=== PATIENT | female | born 1990 | race Caucasian/White ===

== ENCOUNTER 2019-03-25 09:42 | Inpatient (IN) | payer MEDICAID ==
[2019-03-25 10:33] LABS: RUPTURE FETAL MEMBRANES POSITIVE (NEGATIVE)
[2019-03-25] MEDS ORDERED: METHYLERGONOVINE 0.2 MG INJ IM (12:00)
[2019-03-25] MEDS ORDERED: LIDOCAINE 1% (MPF) 30 ML INJ INJ (12:00)
[2019-03-25] MEDS ORDERED: MISOPROSTOL 200 MCG TAB PR (12:00)
[2019-03-25] MEDS ORDERED: OXYTOCIN 30 UNITS/LR 500 ML IV ×2 (12:00)
[2019-03-25] MEDS ORDERED: IBUPROFEN 600 MG TAB PO (12:00)
[2019-03-25] MEDS ORDERED: BUTORPHANOL 2 MG INJ IV ×2 (12:00)
[2019-03-25] MEDS ORDERED: CARBOPROST 250 MCG INJ IM (12:00)
[2019-03-25] MEDS: LACTATED RINGER'S 1,000 ML IV ×3 (12:34→21:45)
[2019-03-25 12:45] LABS: ADD MAN DIFF? NO
[2019-03-25] MEDS: AMPICILLIN 2 GM/NS (PMX) 100 ML IV (12:49)
[2019-03-25 12:50] LABS: WHITE BLOOD COUNT 7.7 10^3/ul (4.8-10.8)
[2019-03-25 12:50] LABS: BASOPHILS % 0.1 % (0.0-2.0); EOSINOPHILS # 0.1 10^3/ul (0.0-0.5); EOSINOPHILS % 0.6 % (0.0-7.0); HEMATOCRIT 34.3 % (37.0-47.0); LYMPHOCYTES # 1.5 10^3/ul (0.8-2.9); LYMPHOCYTES % 19.8 % (15.0-51.0); MEAN CORPUSCULAR HEMOGLOBIN 25.8 pg (29.0-33.0); MEAN CORPUSCULAR HGB CONC 32.1 g/dl (32.0-37.0); MEAN CORPUSCULAR VOLUME 80.5 fl (82.0-101.0); MEAN PLATELET VOLUME 12.1 fl (7.4-10.4); MONOCYTE # 0.6 10^3/ul (0.3-0.9); MONOCYTES % 7.1 % (0.0-11.0); NEUTROPHIL # 5.6 10^3/ul (1.6-7.5); PLATELET COUNT 224 10^3/UL (140-415); RED BLOOD COUNT 4.26 10^6/ul (4.20-5.40); RED CELL DISTRIBUTION WIDTH 13.2 % (11.5-14.5)
[2019-03-25 13:04] LABS: GLUCOSE 130 mg/dl (70-220)
[2019-03-25 13:09] LABS: INR 0.88; PT RATIO 0.9
[2019-03-25 13:10] LABS: PARTIAL THROMBOPLASTIN TIME 26.2 Sec (23.0-35.0)
[2019-03-25] MEDS: BETAMET NA PHOS/AC(6 MG/ML) 2 ML INJ SYG IM (13:47)
[2019-03-25 14:39] LABS: HEPATITIS B SURFACE ANTIGEN NEGATIVE (NEGATIVE)
[2019-03-25] MEDS: OXYTOCIN 30 UNITS/LR 500 ML IV (14:57)
[2019-03-25] MEDS: AMPICILLIN 1 GM/NS (PMX) 50 ML IV ×2 (17:18→20:54)
[2019-03-25] MEDS: INSULIN REGULAR, HUMAN 100 UNIT/1 ML 3ML VIAL SC (17:59)
[2019-03-25] MEDS ORDERED: GLUCAGON 1 MG INJ IM (18:00)
[2019-03-25] MEDS ORDERED: GLUCOSE GEL 15 GRAM TUBE PO ×2 (18:00)
[2019-03-25] MEDS ORDERED: GLUCOSE GEL 15 GRAM TUBE BUCCAL (18:00)
[2019-03-25] MEDS ORDERED: DEXTROSE 50% 50 ML SYRINGE IV ×2 (18:00)
[2019-03-25] MEDS ORDERED: FENTAnyl 2MCG/ML-ROPIV 0.2% 100 ML (21:36)
[2019-03-25] MEDS ORDERED: DIPHENHYDRAMINE 50 MG INJ IV (22:00)
[2019-03-25] MEDS ORDERED: NALOXONE (0.4 MG/ML) INJ IV (22:00)
[2019-03-25] MEDS: INSULIN ASPART [NOVOLOG] 3 ML PEN SC (22:27)
[2019-03-25 22:53] LABS: RAPID PLASMA REAGIN NONREACTIVE (NR)
[2019-03-26] MEDS: AMPICILLIN 1 GM/NS (PMX) 50 ML IV ×5 (00:13→16:35)
[2019-03-26] MEDS: INSULIN ASPART [NOVOLOG] 3 ML PEN SC ×3 (01:18→09:00)
[2019-03-26] MEDS: LACTATED RINGER'S 1,000 ML IV ×2 (05:49→15:02)
[2019-03-26] MEDS: FENTAnyl 2MCG/ML-ROPIV 0.2% 100 ML BAG EPI ×2 (05:51→14:04)
[2019-03-26] MEDS: ONDANSETRON 4 MG INJ IV (07:32)
[2019-03-26] MEDS: OXYTOCIN 30 UNITS/LR 500 ML IV ×2 (16:56→21:06)
[2019-03-26] MEDS ORDERED: MISOPROSTOL 200 MCG TAB PR (19:30)
[2019-03-26] MEDS ORDERED: METHYLERGONOVINE 0.2 MG INJ IM (19:30)
[2019-03-26] MEDS ORDERED: BENZOCAINE 20% 56 ML SPRAY TOP (19:30)
[2019-03-26] MEDS ORDERED: CARBOPROST 250 MCG INJ IM (19:30)
[2019-03-26] MEDS ORDERED: WITCH HAZEL/GLYCERIN PAD PR (19:30)
[2019-03-26] MEDS ORDERED: OXYCODONE/ASPIRIN (4.88/325) TAB PO ×2 (19:30)
[2019-03-26] MEDS ORDERED: ZOLPIDEM 5 MG TAB PO (19:30)
[2019-03-26] MEDS: SENNA/DOCUSATE NA (8.6MG/50MG) TAB PO (21:02)
[2019-03-27] MEDS: IBUPROFEN 600 MG TAB PO ×4 (00:33→19:08)
[2019-03-27] MEDS: LANOLIN HPA 1 PKT TOP (00:33)
[2019-03-27] MEDS: SENNA/DOCUSATE NA (8.6MG/50MG) TAB PO ×2 (08:29→21:54)
[2019-03-27 08:50] LABS: ADD MAN DIFF? NO
[2019-03-27 08:56] LABS: BASOPHILS % 0.2 % (0.0-2.0); EOSINOPHILS % 0.2 % (0.0-7.0); HEMATOCRIT 30.8 % (37.0-47.0); HEMOGLOBIN 9.9 g/dl (12.0-16.0); LYMPHOCYTES % 15.3 % (15.0-51.0); MEAN CORPUSCULAR HEMOGLOBIN 25.8 pg (29.0-33.0); MEAN CORPUSCULAR HGB CONC 32.1 g/dl (32.0-37.0); MEAN CORPUSCULAR VOLUME 80.4 fl (82.0-101.0); MEAN PLATELET VOLUME 12.3 fl (7.4-10.4); MONOCYTE # 0.9 10^3/ul (0.3-0.9); MONOCYTES % 6.7 % (0.0-11.0); NEUTROPHIL # 9.9 10^3/ul (1.6-7.5); NEUTROPHILS % 76.9 % (39.0-77.0); PLATELET COUNT 206 10^3/UL (140-415); RED BLOOD COUNT 3.83 10^6/ul (4.20-5.40); RED CELL DISTRIBUTION WIDTH 13.3 % (11.5-14.5)
[2019-03-27 08:56] LABS: WHITE BLOOD COUNT 12.9 10^3/ul (4.8-10.8)
[2019-03-27 09:39] LABS: ALANINE AMINOTRANSFERASE 22 IU/L (13-69); ALBUMIN 2.6 g/dl (3.3-4.9); ALKALINE PHOSPHATASE 79 IU/L (42-121); ANION GAP 6 (5-13); ASPARTATE AMINO TRANSFERASE 26 IU/L (15-46); BILIRUBIN,INDIRECT 0.3 mg/dl (0-1.1); BILIRUBIN,TOTAL 0.3 mg/dl (0.2-1.3); BLOOD UREA NITROGEN 6 mg/dl (7-20); CALCIUM 8.8 mg/dl (8.4-10.2); CARBON DIOXIDE 22 mmol/L (21-31); CHLORIDE 108 mmol/L (97-110); Estimated GFR > 60 mL/min (>60); GLUCOSE 159 mg/dl (70-220); POTASSIUM 3.6 mmol/L (3.5-5.1); SODIUM 136 mmol/L (135-144); TOTAL PROTEIN 5.2 g/dl (6.1-8.1)
[2019-03-28] MEDS: IBUPROFEN 600 MG TAB PO ×3 (00:21→11:58)
[2019-03-28] MEDS: DIPHTH/TET/ACEL PERTUSS (ADULT) 0.5 ML VIAL IM* (09:00)
[2019-03-28] MEDS: LANOLIN HPA 1 PKT TOP ×2 (10:09→11:58)
[2019-03-28] MEDS: SENNA/DOCUSATE NA (8.6MG/50MG) TAB PO (10:09)
== END 2019-03-28 18:38 | disposition home or self-care (01) | DRG 807 ==
LOC: OBT 09:42 → L-D 09:42 → PP1 03-26 19:01 → OBT 11:30 → L-D 11:30
PROVIDERS: Obstetrics & Gynecology
PROC: 10E0XZZ Delivery of Products of Conception, External Approach (ICD-10-PCS; principal; 2019-03-26)
DX: O42.913 Preterm premature rupture of membranes, unspecified as to length of time between rupture and onset of labor, third trimester (principal); O24.429 Gestational diabetes mellitus in childbirth, unspecified control; Z37.0 Single live birth; Z3A.36 36 weeks gestation of pregnancy
CPT/HCPCS: 62322; 76818; 80053; 82947; 82962; 84112; 85025; 85610; 85730; 86592; 86850; 86870; 86900; 86901; 87340